=== PATIENT | female | born 1965 | race Caucasian/White ===

== ENCOUNTER → 2018-10-16 | Outpatient (CLI) | payer BC ==
[~2018-10-16] MED LIST: CALC-80; ESTR0.9T; FISH1CAP5; GEMF600T3; HCT25T; LVT.05T; MULT-608; NF-METANX; POTA99TA7
[2018-10-16 09:59] LABS: CARBON DIOXIDE 26 MMOL/L (21-32); CHLORIDE 94 MMOL/L (98-107); POTASSIUM 4.1 MMOL/L (3.6-5.0); SODIUM 137 MMOL/L (135-145)
[2018-10-16 10:00] LABS: ALANINE AMINOTRANSFERASE 14 U/L (0-55); ALKALINE PHOSPHATASE 60 U/L (40-136); BUN/CREATININE RATIO 22; CALCIUM 10.3 MG/DL (8.5-10.1); CREATININE SERUM 0.95 MG/DL (0.60-1.30); GFR ESTIMATED > 60; GLUCOSE 160 MG/DL (70-105); TOTAL PROTEIN 8.2 GM/DL (6.4-8.2)
== END ==
LOC: LAB FS 09:07
PROVIDERS: ATTEND Pediatrics
DX: E11.00 Type 2 diabetes mellitus with hyperosmolarity without nonketotic hyperglycemic-hyperosmolar coma (NKHHC) (principal)
CPT/HCPCS: 36415; 80053; 83036

== ENCOUNTER → 2019-02-14 | Outpatient (CLI) | payer BC ==
[2019-02-14 16:49] LABS: BUN/CREATININE RATIO 23; CARBON DIOXIDE 27 MMOL/L (21-32); CHLORIDE 93 MMOL/L (98-107); CREATININE SERUM 0.86 MG/DL (0.60-1.30); GFR ESTIMATED > 60; GLUCOSE 124 MG/DL (70-105); POTASSIUM 3.4 MMOL/L (3.6-5.0); SODIUM 135 MMOL/L (135-145)
[2019-02-14 16:50] LABS: ALANINE AMINOTRANSFERASE 16 U/L (0-55); ALBUMIN 4.7 GM/DL (3.2-4.5); ALKALINE PHOSPHATASE 56 U/L (40-136); BILIRUBIN,TOTAL 0.2 MG/DL (0.1-1.0); CALCIUM 9.9 MG/DL (8.5-10.1); TOTAL PROTEIN 7.3 GM/DL (6.4-8.2)
== END ==
LOC: LAB FS 15:57
PROVIDERS: ATTEND Pediatrics
DX: E11.9 Type 2 diabetes mellitus without complications (principal)
CPT/HCPCS: 36415; 80053; 83036

== ENCOUNTER → 2019-04-20 | Outpatient (CLI) | payer BC ==
--- NOTE | 2019-04-20 15:29 | Diagnostic Imaging Report ---
PROCEDURE: CT sinuses without contrast TECHNIQUE: Multiple contiguous axial images were obtained through the sinuses without the use of intravenous contrast. Coronal and sagittal reformations were then performed. Auto Exposure Controls were utilized during the CT exam to meet ALARA standards for radiation dose reduction. INDICATION: Left ear pain. COMPARISON: There are no prior studies available for comparison. FINDINGS: There is moderate mucosal thickening of the right ethmoid sinus anteriorly. The sinus in this area is nearly completely opacified. The ostiomeatal complex on the right is also partially narrowed due to the mucosal thickening. The right maxillary antrum itself however is generally clear and well aerated. There is mild/moderate mucosal thickening of the ethmoid sinus and the left maxillary antrum. The sphenoid and frontal sinuses are generally clear. The mastoid air cells are well aerated. There is no significant fluid layering or mucosal thickening to suggest mastoiditis. The ostiomeatal complexes appear patent as do the external auditory meati. There is no fracture or acute bony abnormality evident. There is no evidence for bony destruction involving the skull base either. The nasal bone, zygomatic arches, orbital rims, and mandible are intact. The mandible however was not visualized in its entirety. The intracranial contents where visualized show no sign of an acute abnormality. IMPRESSION: 1. There is bilateral ethmoid sinusitis. There is also partial occlusion of the ostiomeatal complex on the right by mucosal thickening and there is mild mucosal thickening in the left maxillary antrum. The sinuses are otherwise clear. 2. There is no evidence for mastoiditis or for bony destruction of the skull base. Dictated by: Dictated on workstation # [id number]
== END ==
LOC: RAD FS 14:19
PROVIDERS: ATTEND Pediatrics
DX: J32.2 Chronic ethmoidal sinusitis (principal)
CPT/HCPCS: 70486